=== PATIENT | male | born 1950 | race Hispanic/Latino ===

== ENCOUNTER 2018-01-29 11:25 | Day surgery (SDC) | payer OTHER ==
[2018-01-29] MEDS ORDERED: CYCLOPENTOLATE 1% OPTH 2 ML ONE (12:53)
[2018-01-29] MEDS ORDERED: PHENYLEPHRINE 10% OPTH 5ML ONE (12:53)
[2018-01-29] MEDS ORDERED: NA CHLORIDE 0.9% 500 ML ONE (12:53)
[2018-01-29] MEDS ORDERED: PHENYLEPHRINE 10% OPTH 5ML OPTH ONE ×2 (12:56→13:08)
[2018-01-29] MEDS ORDERED: CYCLOPENTOLATE 1% OPTH 2 ML OPTH ONE ×2 (12:56→13:08)
[2018-01-29] MEDS ORDERED: EPINEPHRINE/PF 1 MG/ML AMP ONE (12:58)
[2018-01-29] MEDS ORDERED: NS 0.9% VIAL 10 ML ONE (12:58)
[2018-01-29] MEDS ORDERED: BALANCED SALT IRRIG PLAIN 500 ML BTL IRR ONE (12:58)
[2018-01-29] MEDS ORDERED: MOXIFLOXACIN HCL 10 DROPS/ML **OR USE OPTH ONE (12:59)
[2018-01-29] MEDS ORDERED: DUOVISC 1 KIT OPTH ONE (12:59)
[2018-01-29] MEDS: TETRACAINE HCL 0.5% 2ML OPTH ONE ×2 (13:58→14:15)
[2018-01-29] MEDS: LIDOCAINE 2% MPF 5 ML VIAL ONE ×2 (13:59→14:16)
[2018-01-29] MEDS: BUPIVACAINE 0.25% PF 10 ML VIAL ONE ×2 (13:59→14:16)
[2018-01-29] MEDS ORDERED: PROPOFOL 200 MG/20 ML VIAL IV ONE (14:49)
[2018-01-29] MEDS ORDERED: LIDOCAINE 2% MPF 5 ML VIAL ONE (14:49)
--- NOTE | 2018-01-29 15:09 | P.BOP ---
Preoperative diagnosis: Nuclear sclerotic cataract OS Postoperative diagnosis: Same Primary procedure: Phacoemulsification with IOL OS Estimated blood loss: None Anesthesia: Local (Subtenon's infusion with anesthesia for cataract surgery) Complications: None Implants: [id number] +22.5 Transferred to: Other (Day surgery) Condition: Good
--- NOTE | 2018-01-30 00:27 | OP ---
Date of Procedure: 01/29/2018 Surgeon: Samaria Swanson MD Anesthesiologist: 1. Barry Hurley CRNA. 2. Holger Medrano M.D. Preoperative Diagnosis: Nuclear sclerotic cataract, OS (left eye). Operation Performed: Phacoemulsification with intraocular lens implant, OS (left eye). Anesthesia: Per cataract surgery. Complications: None. Description Of Procedure: In day surgery, the patient was prepped with Betadine and draped. A conju nctival incision was made in the inferior nasal quadrant with Kunal scissors. A sub-Tenon block c onsisting of a 1:1 mixture of 2% Xylocaine and 0.25% bupivacaine was placed through the conjunctival incision with a blunt cannula. A Honan balloon was placed over the eye and the patient was transferr ed to the operating room. In the operating room the patient was prepped and draped in the usual sterile fashion for ophthalmic surgery. A lid speculum was placed in the OS. Two paracentesis sites were made superiorly and infer iorly in the limbal cornea. Viscoat was placed in the anterior chamber and a crescent blade was used to make a corneal groove and tunnel, and a keratome was used to enter the anterior chamber. Provisc was placed in the anterior chamber and a 360 degree capsulotomy was performed with a cystitome. The lens was hydrodissected with BSS and rotated freely. The lens was removed with a stop and chop tech nique. A 16.37 phaco CDE was used to remove the lens. Residual cortex was removed with the irrigati on and aspiration. Provisc was placed in the capsular bag. A ZCB00 +22.5 diopter lens was placed in the capsular bag without complications. Irrigation and aspiration was used to remove residual visco elastic. The paracentesis sites were hydrated with BSS. The wound and paracentesis sites were inspe cted and found to be watertight. Vigamox 0.07 cc was placed intracamerally at the end of the procedu re. The eye was irrigated with balanced salt solution. The eye was patched with a soft cotton patch and Leon metal shield. The patient was returned to day surgery in good condition. Discharge Instructions: Mr. Boswell is discharged to home in good condition and is to follow up [facility] Dr. Swanson in the morning. JHL/MODL Voice ID: [id number] Report ID: [id number]
== END 2018-01-29 15:36 | disposition home or self-care (01) ==
LOC: OR 11:25
PROVIDERS: ATTEND Ophthalmology Retina Specialist
PROC: 08RK3JZ Replacement of Left Lens with Synthetic Substitute, Percutaneous Approach (ICD-10-PCS; principal; 2018-01-29 11:45)
DX: H25.12 Age-related nuclear cataract, left eye (principal); F17.200 Nicotine dependence, unspecified, uncomplicated; M19.90 Unspecified osteoarthritis, unspecified site; Z83.3 Family history of diabetes mellitus
CPT/HCPCS: J0171

== ENCOUNTER 2018-05-21 06:25 | Day surgery (SDC) | payer OTHER ==
[2018-05-21] MEDS ORDERED: BUPIVACAINE 0.25% PF 10 ML VIAL ONE (06:59)
[2018-05-21] MEDS ORDERED: CYCLOPENTOLATE 1% OPTH 2 ML ONE (06:59)
[2018-05-21] MEDS ORDERED: LIDOCAINE 2% MPF 5 ML VIAL ONE (06:59)
[2018-05-21] MEDS ORDERED: TETRACAINE HCL 0.5% 2ML OPTH ONE (07:00)
[2018-05-21] MEDS ORDERED: NA CHLORIDE 0.9% 500 ML ONE (07:00)
[2018-05-21] MEDS ORDERED: PHENYLEPHRINE 10% OPTH 5ML ONE (07:01)
[2018-05-21] MEDS ORDERED: PHENYLEPHRINE 10% OPTH 5ML OPTH ONE ×2 (07:27→07:37)
[2018-05-21] MEDS ORDERED: CYCLOPENTOLATE 1% OPTH 2 ML OPTH ONE ×2 (07:27→07:37)
[2018-05-21] MEDS ORDERED: FENTANYL CITR 100 MCG/2 ML ONE (07:53)
[2018-05-21] MEDS ORDERED: MIDAZOLAM HCL 2 MG/2 ML INJ ONE (07:54)
[2018-05-21] MEDS ORDERED: LIDOCAINE HCL/PF 3.5% OPTH GEL ONE (07:58)
[2018-05-21] MEDS ORDERED: NS 0.9% VIAL 10 ML ONE (08:02)
[2018-05-21] MEDS ORDERED: EPINEPHRINE/PF 1 MG/ML AMP ONE (08:03)
[2018-05-21] MEDS ORDERED: BALANCED SALT IRRIG PLAIN 500 ML BTL IRR ONE (08:04)
[2018-05-21] MEDS ORDERED: DUOVISC 1 KIT OPTH ONE (08:05)
[2018-05-21] MEDS ORDERED: MOXIFLOXACIN HCL 10 DROPS/ML **OR USE OPTH ONE (08:06)
[2018-05-21] MEDS ORDERED: LIDOCAINE 1% MPF 2 ML AMPULE ONE (08:06)
[2018-05-21] MEDS ORDERED: GLYCOPYRROLATE 0.2 MG/ML SYR ONE (08:36)
--- NOTE | 2018-05-21 09:05 | P.BOP ---
Preoperative diagnosis: Nuclear sclerotic cataract OD Postoperative diagnosis: Same Primary procedure: Phacoemulsification with IOL OD Estimated blood loss: None Anesthesia: Local (Topical with anesthesia for cataract surgery) Complications: None Implants: ZCB00 +22.5 Transferred to: Other (Day surgery) Condition: Good
--- NOTE | 2018-05-21 17:26 | OP ---
Date of Procedure: 05/21/2018 Surgeon: Samaria Swanson MD Anesthesiologist: 1. Elisabeth Liu C.R.N.A. 2. Cameron Meyers M.D. Preoperative Diagnosis: Nuclear sclerotic cataract, right eye. Operation Performed: Phacoemulsification with intraocular lens implant, right eye. Anesthesia: Per cataract surgery Complications: None. Description Of Procedure: In the operating room the patient was prepped and draped in the usual sterile fashion for ophthalmic surgery. A lid speculum was placed in the right eye. Two paracentesis sites were made superiorly and inferiorly in the limbal cornea. Viscoat was placed in the anterior chamber and a crescent blade was used to make a corneal groove and tunnel, and a keratome was used to enter the anterior chamber. Provisc was placed in the anterior chamber and a 360 degree capsulotomy was performed with a cystitome. The lens was hydrodissected with BSS and rotated freely. The lens was removed with a stop and chop technique. 8.97 phaco CDE was used to remove the lens. Residual cortex was removed with the irrigation and aspiration. Provisc was placed in the capsular bag. A ZCB00 +22.5 lens was placed in the capsular bag without complications. Irrigation and aspiration was used to remove residual viscoelastic. The paracentesis sites were hydrated with BSS. The wound and paracentesis sites were inspected and found to be watertight. Vigamox 0.07 cc was placed intracamerally at the end of the procedure. The eye was irrigated with balanced salt solution. The eye was patched with a soft cotton patch and Leon metal shield. The patient was returned to day surgery in good condition. Comments: Akten was placed in the eye in Day Surgery and irrigated out the eye and the OR. Preservative-free 1% lidocaine was placed in the anterior chamber prior to Viscoat. Discharge Instructions: Mr. Boswell is discharged to home in good condition and is to follow up with Dr. Swanson in the morning. JUDI/DORIAN Voice ID: [id number] Report ID: [id number] OVIDIO
== END 2018-05-21 09:32 | disposition home or self-care (01) ==
LOC: OR 06:25
PROVIDERS: ATTEND Ophthalmology Retina Specialist
PROC: 08RJ3JZ Replacement of Right Lens with Synthetic Substitute, Percutaneous Approach (ICD-10-PCS; principal; 2018-05-21 08:30)
DX: H25.11 Age-related nuclear cataract, right eye (principal); F17.210 Nicotine dependence, cigarettes, uncomplicated; Z83.3 Family history of diabetes mellitus
CPT/HCPCS: J0171; J2001; J2250; J3010

== ENCOUNTER 2018-08-22 11:09 | Observation (INO) | payer OTHER ==
[2018-08-22] MEDS ORDERED: CLINDAMYCIN 600MG/D5W 600 MG/50 ML BAG IV ONE (13:20)
--- NOTE | 2018-08-22 13:26 | RAD REPORT ---
EXAM DESCRIPTION: RAD - Hand Left 3 View - 08/22/2018 1:03 pm CLINICAL HISTORY: r/o FB;Swelling Pain COMPARISON: No comparisons FINDINGS: There is a large amount of soft tissue swelling along the dorsum of the hand. A radiopaque foreign body is not seen. Radiocarpal arthritic changes are present. No acute fracture or subluxatio n. No aggressive marrow pattern. IMPRESSION: Prominent soft tissue swelling.
[2018-08-22 13:30] LABS: Absolute Lymphocytes (CBC) 1.3 K/uL (0.7-4.9); Absolute Monocytes 1.2 K/uL (0.1-1.3); Absolute Neutrophil 10.6 K/uL (1.8-8.0); Basophils % 0.2 % (0-1.3); Eosinophils % 1.9 % (0-4.4); Hematocrit 47.6 % (39.6-49.0); Lymphocytes % 9.6 % (15.3-44.8); MCH 34.2 pg (27.0-35.0); MCV 98.5 fL (80-100); MPV 8.7 fL (7.6-11.3); Monocytes % 9.1 % (3.3-12.3); RBC Red Blood Cell Count 4.83 M/uL (4.33-5.43)
[2018-08-22 13:47] LABS: Potassium 3.6 mmol/L (3.5-5.1)
[2018-08-22] MEDS ORDERED: HYDROCODONE/APAP 10/325 TAB ONE (14:01)
[2018-08-22] MEDS ORDERED: TETANUS & DIPHTHERIA TOX,ADULT 0.5 ML VIAL ONE (14:05)
--- NOTE | 2018-08-22 15:05 | ER ---
Nurse's Notes [facility] Name: Merle Boswell Age: 68 yrs Sex: Male : 1950 Arrival Date: 08/22/2018 Time: 11:11 Bed 24 Private MD: Diagnosis: Cellulitis of left upper limb-hand Presentation: 08/22 11:25 Presenting complaint: Patient states: On Monday he noticed a blister on his left hand aj1 so he popped it, he noticed redness and swelling starting on Monday. He was seen at the clinic yesterday morning and they started him on cephalexin PO and mupirocin ointment and alejandro a washoe around the reddened area, but this morning the redness has spread despite him taking the antibiotics. They followed up at the clinic and were to told to come to the emergency room for further evaluation. Denies fever. Transition of care: patient was not received from another setting of care. Onset of symptoms was July 2018. Risk Assessment: Do you want to hurt yourself or someone else? Patient reports no desire to harm self or others. Initial Sepsis Screen: Does the patient meet any 2 criteria? No. Patient's initial sepsis screen is negative. Does the patient have a suspected source of infection? Yes: Skin breakdown/wound. Care prior to arrival: None. 11:25 Method Of Arrival: Ambulatory aj1 11:25 Acuity: LUIS 3 aj1 Triage Assessment: 11:30 General: Appears in no apparent distress. comfortable, Behavior is calm, cooperative, aj1 appropriate for age. Pain: Complains of pain in left hand Pain currently is 9 out of 10 on a pain scale. Neuro: Level of Consciousness is awake, alert, obeys commands. Cardiovascular: Patient's skin is warm and dry. Respiratory: Airway is patent Respiratory effort is even, unlabored, Respiratory pattern is regular, symmetrical. Historical: - Allergies: 11:30 No Known Allergies; aj1 - Home Meds: 11:30 Cephalexin Oral [Active]; mupirocin topical topical [Active]; aj1 - PMHx: 11:30 None; aj1 - Immunization history:: Adult Immunizations. - Social history:: Smoking status: . - Ebola Screening: : Patient denies travel to an Ebola-affected area in the 21 days before illness onset. Screenin:43 Abuse screen: Denies threats or abuse. Nutritional screening: No deficits noted. tw2 Tuberculosis screening: No symptoms or risk factors identified. Fall Risk None identified. Assessment: 12:30 General: Appears in no apparent distress. Behavior is calm, cooperative, appropriate tw2 for age. Pain: Complains of pain in left hand. Neuro: Level of Consciousness is awake, alert, obeys commands, Oriented to person, place, time, situation. Cardiovascular: Denies chest pain, shortness of breath, Heart tones S1 S2 Capillary refill < 3 seconds. Respiratory: Airway is patent Respiratory effort is even, unlabored, Respiratory pattern is regular, symmetrical, Breath sounds are clear bilaterally. GI: No signs and/or symptoms were reported involving the gastrointestinal system. : No signs and/or symptoms were reported regarding the genitourinary system. EENT: No signs and/or symptoms were reported regarding the EENT system. Derm: Wound noted left hand. Musculoskeletal: Range of motion: intact in all extremities. 13:30 Reassessment: Patient appears in no apparent distress at this time. No changes from tw2 previously documented assessment. Patient and/or family updated on plan of care and expected duration. Pain level reassessed. Patient is alert, oriented x 3, equal unlabored respirations, skin warm/dry/pink. 14:09 Reassessment: Patient appears in no apparent distress at this time. No changes from tw2 previously documented assessment. Patient and/or family updated on plan of care and expected duration. Pain level reassessed. Patient is alert, oriented x 3, equal unlabored respirations, skin warm/dry/pink. Reassessment: pts DAUGHTER ph# [phone]. 15:12 Reassessment: Patient appears in no apparent distress at this time. No changes from tw2 previously documented assessment. Patient and/or family updated on plan of care and expected duration. Pain level reassessed. Patient is alert, oriented x 3, equal unlabored respirations, skin warm/dry/pink. Patient states feeling better. 16:15 Reassessment: Patient appears in no apparent distress at this time. No changes from tw2 previously documented assessment. Patient and/or family updated on plan of care and expected duration. Pain level reassessed. Patient is alert, oriented x 3, equal unlabored respirations, skin warm/dry/pink. Vital Signs: 11:30 BP 135 / 68; Pulse 82; Resp 16; Temp 97.7; Pulse Ox 98% on R/A; Weight 77.11 kg (R); aj1 Height 5 ft. 4 in. (162.56 cm) (R); Pain 9/10; 14:09 BP 144 / 70; Pulse 76; Resp 17; Pulse Ox 96% on R/A; tw2 15:11 BP 118 / 64; Pulse 69; Resp 17; Pulse Ox 95% on R/A; tw2 16:11 BP 121 / 66; Pulse 66; Resp 17; Pulse Ox 96% on R/A; tw2 11:30 Body Mass Index 29.18 (77.11 kg, 162.56 cm) aj1 ED Course: 11:11 Patient arrived in ED. as 11:29 Triage completed. aj1 11:30 Arm band placed on Patient placed in waiting room, Patient notified of wait time. aj1 12:27 Joana Andrade FNP-C [facility] kb 12:27 Los Apodaca MD is Attending Physician. kb 12:30 Bed in low position. Call light in reach. Adult w/ patient. Pulse ox on. NIBP on. Warm tw2 blanket given. 12:54 Candace Monreal, HOLLY is Primary Nurse. tw2 12:54 Missed attempt(s): 22 gauge in right antecubital area. Bleeding controlled, band aid tw2 applied, catheter tip intact. 13:02 Missed attempt(s): 22 gauge in right forearm. notified HOLLY Robbins of need for IV. tw2 Bleeding controlled, band aid applied, catheter tip intact. 13:03 Hand Left 3 View XRAY In Process Unspecified. EDMS 13:05 Inserted saline lock: 22 gauge in right forearm, using aseptic technique. ,using tw2 aseptic technique. per HOLLY Robbins Blood collected. 15:05 Suki Durán MD is Hospitalizing Provider. kb 16:43 No provider procedures requiring assistance completed. Patient admitted, IV remains in tw2 place. Administered Medications: 13:24 Drug: Clindamycin 600 mg Route: IVPB; Infused Over: 30 mins; Site: right forearm; tw2 13:55 Follow up: Response: No adverse reaction; IV Status: Completed infusion tw2 14:03 Drug: [place] 10 mg-325 mg 1 tabs Route: PO; tw2 15:13 Follow up: Response: No adverse reaction; Pain is decreased tw2 14:03 Not Given (Patient Refused; got tetaus at clinic yesterday): Tetanus-Diphtheria Toxoid tw2 Adult 0.5 ml IM once Outcome: 15:05 Decision to Hospitalize by Provider. kb 16:45 Admitted to Med/surg accompanied by tech, via wheelchair, room 211, with chart, Report tw2 called to HOLLY Rich 16:45 Condition: stable 16:45 Instructed on the need for admit. 17:20 Patient left the ED. tw2 Signatures: Dispatcher [employer] EDMS Joana Andrade, PLATFORM BUILDER-C PLATFORM BUILDER-Radha Arnold RN RN aj1 Jo Ann Bailey as Candace Monreal, HOLLY RN tw2 Corrections: (The following items were deleted from the chart) 16:54 16:45 Admitted to Med/surg accompanied by tech, via wheelchair, room 211, with chart, tw2 Report called to HOLLY Wolf tw2
--- NOTE | 2018-08-22 15:06 | EDPHYS ---
Physician Documentation [facility] Name: Merle Boswell Age: 68 yrs Sex: Male : 1950 Arrival Date: 08/22/2018 Time: 11:11 Bed 24 Private MD: ED Physician Los Apodaca HPI: 08/22 15:12 This 68 yrs old Male presents to ER via Ambulatory with complaints of Hand kb Swelling. 15:12 The patient or guardian reports pain, swelling. Context: The problem was sustained. kb 15:14 The patient presents with cellulitis of the left hand. Description: erythematous, kb swollen, warm. Onset: The symptoms/episode began/occurred 6 day(s) ago. Possible cause(s): unknown. Associated signs and symptoms: Pertinent positives: drainage, erythema, swelling, Pertinent negatives: foreign body sensation, fever, headache, nausea, shortness of breath, vomiting. Modifying factors: the symptoms are alleviated by nothing, the symptoms are aggravated by nothing. Severity of symptoms: At their worst the symptoms were moderate, in the emergency department the symptoms are unchanged. The patient has not experienced similar symptoms in the past. The patient has been recently seen by a physician: a family practitioner, yesterday, with similar presenting complaints, was given a prescription for antibiotics. 15:15 Pt noticed a blister to knuckle of left middle finger on Monday, started getting red kb and swollen so he went to the clinic to get it checked. Was placed on keflex yesterday and alejandro a line around area of redness/swelling. States redness and swelling has gone to entire hand since then. Historical: - Allergies: 11:30 No Known Allergies; aj1 - Home Meds: 11:30 Cephalexin Oral [Active]; mupirocin topical topical [Active]; aj1 - PMHx: 11:30 None; aj1 - Immunization history:: Adult Immunizations. - Social history:: Smoking status: . - Ebola Screening: : Patient denies travel to an Ebola-affected area in the 21 days before illness onset. ROS: 15:12 Constitutional: Negative for fever, chills, and weight loss, ENT: Negative for injury, kb pain, and discharge, Neck: Negative for injury, pain, and swelling, Cardiovascular: Negative for chest pain, palpitations, and edema, Respiratory: Negative for shortness of breath, cough, wheezing, and pleuritic chest pain, Abdomen/GI: Negative for abdominal pain, nausea, vomiting, diarrhea, and constipation, Back: Negative for injury and pain, MS/Extremity: Negative for injury and deformity, Neuro: Negative for headache, weakness, numbness, tingling, and seizure. 15:12 Skin: Positive for cellulitis, erythema, swelling. Exam: 15:12 Constitutional: This is a well developed, well nourished patient who is awake, alert, kb and in no acute distress. Head/Face: Normocephalic, atraumatic. Chest/axilla: Normal chest wall appearance and motion. Nontender with no deformity. No lesions are appreciated. Cardiovascular: Regular rate and rhythm with a normal S1 and S2. No gallops, murmurs, or rubs. Normal PMI, no JVD. No pulse deficits. Respiratory: Lungs have equal breath sounds bilaterally, clear to auscultation and percussion. No rales, rhonchi or wheezes noted. No increased work of breathing, no retractions or nasal flaring. Abdomen/GI: Soft, non-tender, with normal bowel sounds. No distension or tympany. No guarding or rebound. No evidence of tenderness throughout. MS/ Extremity: Pulses equal, no cyanosis. Neurovascular intact. Full, normal range of motion. Neuro: Awake and alert, GCS 15, oriented to person, place, time, and situation. Cranial nerves II-XII grossly intact. Motor strength 5/5 in all extremities. Sensory grossly intact. Cerebellar exam normal. Normal gait. 15:12 Skin: cellulitis, that is moderate, on the left hand. Vital Signs: 11:30 BP 135 / 68; Pulse 82; Resp 16; Temp 97.7; Pulse Ox 98% on R/A; Weight 77.11 kg (R); aj1 Height 5 ft. 4 in. (162.56 cm) (R); Pain 9/10; 14:09 BP 144 / 70; Pulse 76; Resp 17; Pulse Ox 96% on R/A; tw2 15:11 BP 118 / 64; Pulse 69; Resp 17; Pulse Ox 95% on R/A; tw2 16:11 BP 121 / 66; Pulse 66; Resp 17; Pulse Ox 96% on R/A; tw2 11:30 Body Mass Index 29.18 (77.11 kg, 162.56 cm) aj1 MDM: 12:28 Patient medically screened. kb 15:02 Data reviewed: vital signs, nurses notes. Data interpreted: Pulse oximetry: on room air kb is 96 %. Interpretation: normal. Counseling: I had a detailed discussion with the patient and/or guardian regarding: the historical points, exam findings, and any diagnostic results supporting the discharge/admit diagnosis, lab results, radiology results, the need for further work-up and treatment in the hospital. Physician consultation: Suki Durán MD was contacted at 15:02, regarding admission, to the medical/surgical unit. patient's condition, and will see patient in ED, shortly. 08/22 12:36 Order name: Wound Culture kb 08/22 12:36 Order name: CBC with Diff; Complete Time: 13:33 kb 08/22 12:36 Order name: Basic Metabolic Panel; Complete Time: 13:52 kb 08/22 12:36 Order name: Blood Culture Adult (2) kb 08/22 12:36 Order name: Hand Left 3 View XRAY; Complete Time: 13:33 kb 08/22 12:36 Order name: IV Start; Complete Time: 13:12 kb 08/22 15:41 Order name: Diet Regular; Complete Time: 15:42 tw2 Administered Medications: 13:24 Drug: Clindamycin 600 mg Route: IVPB; Infused Over: 30 mins; Site: right forearm; tw2 13:55 Follow up: Response: No adverse reaction; IV Status: Completed infusion tw2 14:03 Drug: [place] 10 mg-325 mg 1 tabs Route: PO; tw2 15:13 Follow up: Response: No adverse reaction; Pain is decreased tw2 14:03 Not Given (Patient Refused; got tetaus at clinic yesterday): Tetanus-Diphtheria Toxoid tw2 Adult 0.5 ml IM once Disposition: 08/22/18 15:05 Hospitalization ordered by Suki Durán for Inpatient Admission. Preliminary diagnosis is Cellulitis of left upper limb - hand. - Bed requested for Telemetry/MedSurg (Inpatient). - Status is Inpatient Admission. tw2 - Condition is Stable. - Problem is new. - Symptoms are unchanged. UTI on Admission? No Signatures: Dispatcher [employer] EDJoana Uribe FNP-C FNP-Ckb Ashlie LianetRadha Guzman, RN RN aj1 Candace Monreal RN RN tw2 Corrections: (The following items were deleted from the chart) 16:33 15:05 Hospitalization Ordered by Suki Durán MD for Inpatient Admission. Preliminary bd diagnosis is Cellulitis of left upper limb - hand. Bed requested for Telemetry/MedSurg (Inpatient). Status is Inpatient Admission. Condition is Stable. Problem is new. Symptoms are unchanged. UTI on Admission? No. kb 17:20 16:33 08/22/2018 15:05 Hospitalization Ordered by Suki Durán MD for Inpatient tw2 Admission. Preliminary diagnosis is Cellulitis of left upper limb - hand. Bed requested for Telemetry/MedSurg (Inpatient). Status is Inpatient Admission. Condition is Stable. Problem is new. Symptoms are unchanged. UTI on Admission? No. bd
--- NOTE | 2018-08-22 17:48 | P.HP ---
Certification for Inpatient With expected LOS: <2 Midnights Practitioner: I am a practitioner with admitting privileges, knowledge of patient current condition, hospital course, and medical plan of care. Services: Services provided to patient in accordance with Admission requirements found in Title 42 Section 412.3 of the Code of Federal Regulations Patient History Date of Service: 08/22/18 History of Present Illness: Mr. Boswell is a 60-year-old gentleman with no known past medical history presents with complaints of left hand pain. He noted a small cut on his left hand on Monday, which is progressively gotten worse. He did go to his primary care physician yesterday, got oral antibiotics and PCP alejandro a [place] around the cellulitic area. The erythema and swelling had progressively gotten worse since yesterday, therefore patient came in for further evaluation. He denies any fevers, chills, chest pain, shortness of breath, or headaches. Of note, patient has no PCP and has not visited a doctor in a long time therefore on sure of any chronic diseases. He states that he does not take any medications at home. At the time of my examination, patient was alert oriented x3 and stated that the pain had improved. Allergies No Known Allergies Allergy (Verified 05/16/18 10:36) Home Medications: NK [No Home Meds] 01/25/18 - Past Medical/Surgical History Past Medical History: Patient denies medical history Past Surgical History: Patient denies surgical history - Social History Smoking Status: Current every day smoker Alcohol use: Yes CD- Drugs: No Caffeine use: Yes Place of Residence: Home Review of Systems General: Unremarkable Eyes: Unremarkable ENT: Unremarkable Respiratory: Unremarkable Cardiovascular: Unremarkable Gastrointestinal: Unremarkable Genitourinary: Unremarkable Musculoskeletal: As per HPI Physical Examination - Vital Signs Temperature: 97.7 F Blood Pressure: 121/66 Pulse: 66 Respirations: 17 - Physical Exam General: Alert, In no apparent distress, Oriented x3 HEENT: Atraumatic, PERRLA, Mucous membr. moist/pink, EOMI, Sclerae nonicteric Neck: Supple, 2+ carotid pulse no bruit, No LAD, Without JVD or thyroid abnormality Respiratory: Clear to auscultation bilaterally, Normal air movement Cardiovascular: Regular rate/rhythm, Normal S1 S2 Gastrointestinal: Normal bowel sounds, No tenderness Musculoskeletal: Swelling (Located on left hand), Erythema, Tenderness, Warmth Integumentary: No rashes Neurological: Normal gait, Normal speech, Normal strength at 5/5 x4 extr, Normal tone, Normal affect Lymphatics: No axilla or inguinal lymphadenopathy - Studies Laboratory Data (last 24 hrs) 08/22/18 13:05: Sodium 139, Potassium 3.6, BUN 13, Creatinine 0.90, Glucose 101 08/22/18 13:05: WBC 13.4 H, Hgb 16.5, Hct 47.6, Plt Count 221 Assessment and Plan - Problems (Diagnosis) (1) Cellulitis of left hand Current Visit: Yes Status: Acute Plan: Patient admitted for cellulitis of the left handed, failed outpatient treatment Hand x-ray with soft tissue swelling, no bony involvement or acute abnormalities of the bones noted. Will start patient on IV clindamycin Check labs in the morning (2) Tobacco dependence due to cigarettes Current Visit: Yes Status: Acute Plan: Educated and counseled patient on tobacco/smoking cessation Discharge Plan: Home Plan to discharge in: 24 Hours - Advance Directives Does patient have a Living Will: No Does patient have a Durable POA for Healthcare: No
[2018-08-22] MEDS ORDERED: ONDANSETRON 4 MG/2 ML VIAL IV PRN (20:06)
[2018-08-22] MEDS ORDERED: ACETAMINOPHEN 500 MG TAB PO PRN (20:06)
[2018-08-22] MEDS: CLINDAMYCIN INJ 300 MG in NA CHLORIDE 0.9% 50 ML IV SCH (21:11)
[2018-08-22] MEDS ORDERED: CLINDAMYCIN IV 150 MG/ML (6 mL) VIAL ONE (21:12)
[2018-08-22] MEDS ORDERED: NA CHLORIDE 0.9% 50 ML ONE (21:13)
[2018-08-22] MEDS ORDERED: NA CHLORIDE 0.9% 250 ML ONE (21:13)
[2018-08-22] MEDS: TRAMADOL HCL 50 MG TAB PO PRN (21:22)
[2018-08-22] MEDS ORDERED: ENOXAPARIN 30 MG/0.3 ML SQ SCH (21:30)
[2018-08-23] MEDS: CLINDAMYCIN INJ 300 MG in NA CHLORIDE 0.9% 50 ML IV SCH ×4 (01:10→17:28)
[2018-08-23] MEDS ORDERED: NA CHLORIDE 0.9% 100 ML ONE ×2 (01:10→05:29)
[2018-08-23 05:23] LABS: Absolute Lymphocytes (CBC) 1.6 K/uL (0.7-4.9); Absolute Monocytes 0.8 K/uL (0.1-1.3); Absolute Neutrophil 7.5 K/uL (1.8-8.0); Basophils % 0.3 % (0-1.3); Eosinophils % 2.5 % (0-4.4); Hematocrit 46.8 % (39.6-49.0); Lymphocytes % 15.8 % (15.3-44.8); MCH 33.3 pg (27.0-35.0); MCV 99.7 fL (80-100); MPV 8.8 fL (7.6-11.3); Monocytes % 8.2 % (3.3-12.3); RBC Red Blood Cell Count 4.69 M/uL (4.33-5.43)
[2018-08-23] MEDS: TRAMADOL HCL 50 MG TAB PO PRN ×2 (05:27→12:00)
[2018-08-23 05:39] LABS: Albumin 3.6 g/dL (3.4-5.0); Bilirubin Total 0.7 mg/dL (0.2-1.0); Potassium 3.9 mmol/L (3.5-5.1); Protein, Total 7.1 g/dL (6.4-8.2)
[2018-08-23] MEDS ORDERED: POTASSIUM CL SA 10 MEQ TAB PO ONE (12:00)
--- NOTE | 2018-08-23 15:54 | P.PN ---
Subjective Date of Service: 08/23/18 Patient seen and examined at bedside. No family at bedside. Case discussed with nursing staff. Patient reports slightly improved swelling and erythema. Still noticing pus and drainage from wound. Afebrile overnight. No new complaints or concerns this morning. Denies any chills, chest pain, nausea, vomiting, headache or visual changes. Review of Systems 10-point ROS is otherwise unremarkable Physical Examination - Vital Signs Temperature: 98.6 F Blood Pressure: 133/65 Pulse: 65 Respirations: 17 Pulse Ox (%): 93 - Physical Exam General: Alert, In no apparent distress HEENT: Atraumatic, PERRLA, EOMI Neck: Supple, JVD not distended Respiratory: Clear to auscultation bilaterally, Normal air movement Cardiovascular: Regular rate/rhythm, Normal S1 S2 Gastrointestinal: Normal bowel sounds, No tenderness Musculoskeletal: Swelling, Erythema, Tenderness, Other (Located on the left hand at the base of the 2nd finger. No induration felt. ) Integumentary: No rashes Neurological: Normal speech, Normal tone, Normal affect Lymphatics: No axilla or inguinal lymphadenopathy - Studies Microbiology Data (last 24 hrs): 08/22/18 12:30 Wound - Left Finger Gram Stain - Final Medications List Reviewed: Yes Assessment And Plan - Current Problems (Diagnosis) (1) Cellulitis of left hand Onset Date: 08/23/18 Current Visit: Yes Status: Acute Plan: Patient admitted for cellulitis of the left hand, failed outpatient treatment Hand x-ray with soft tissue swelling, no bony involvement or acute abnormalities of the bones noted. Will continue patient on IV clindamycin Check labs in the morning (2) Tobacco dependence due to cigarettes Onset Date: 08/23/18 Current Visit: Yes Status: Acute Plan: Educated and counseled patient on tobacco/smoking cessation - Plan If improved symptomatically tomorrow on IV clindamycin, will discharge patient home
[2018-08-23] MEDS ORDERED: ENOXAPARIN 30 MG/0.3 ML SQ SCH (21:00)
[2018-08-24] MEDS: CLINDAMYCIN INJ 300 MG in NA CHLORIDE 0.9% 50 ML IV SCH ×3 (01:29→13:18)
[2018-08-24] MEDS: TRAMADOL HCL 50 MG TAB PO PRN ×2 (01:33→13:15)
[2018-08-24 05:39] LABS: Absolute Lymphocytes (CBC) 1.5 K/uL (0.7-4.9); Absolute Monocytes 0.9 K/uL (0.1-1.3); Absolute Neutrophil 6.1 K/uL (1.8-8.0); Basophils % 0.4 % (0-1.3); Eosinophils % 4.1 % (0-4.4); Hematocrit 46.2 % (39.6-49.0); Lymphocytes % 16.9 % (15.3-44.8); MCH 33.4 pg (27.0-35.0); MCV 98.6 fL (80-100); MPV 8.7 fL (7.6-11.3); RBC Red Blood Cell Count 4.68 M/uL (4.33-5.43)
[2018-08-24 05:53] LABS: Albumin 3.3 g/dL (3.4-5.0); Bilirubin Total 0.7 mg/dL (0.2-1.0); Magnesium 2.2 mg/dL (1.8-2.4)
== END 2018-08-24 13:43 | disposition home or self-care (01) ==
LOC: ER 11:09 → INTOOBSV 15:11 → ERHOLD 15:11 → 2ND 16:58
PROVIDERS: ADMIT Family Medicine; ATTEND Family Medicine
DX: L03.114 Cellulitis of left upper limb (principal); F17.210 Nicotine dependence, cigarettes, uncomplicated
CPT/HCPCS: 36415; 80048; 80053; 83036; 83735; 85025; 87040; 87070; 87077; 87186; 87205; 90714; 96365; 99285; G0378; J1650

== ENCOUNTER 2020-06-03 08:08 | Emergency (ER) | payer OTHER ==
[2020-06-03 08:54] LABS: Absolute Lymphocytes (CBC) 1.6 K/uL (0.7-4.9); Basophils % 0.7 % (0-1.3); Lymphocytes % 11.2 % (15.3-44.8); MPV 9.1 fL (7.6-11.3)
[2020-06-03] MEDS ORDERED: MORPHINE 4 MG/ML SYR ONE (09:01)
[2020-06-03] MEDS ORDERED: ONDANSETRON 4 MG/2 ML VIAL ONE (09:02)
[2020-06-03 09:13] LABS: Bilirubin Direct 0.2 mg/dL (0-0.2); Potassium 3.8 mmol/L (3.5-5.1); Protein, Total 8.4 g/dL (6.4-8.2)
[2020-06-03] MEDS ORDERED: NA CHLORIDE 0.9% 1,000 ML ONE (09:45)
--- NOTE | 2020-06-03 10:28 | RAD REPORT ---
EXAM DESCRIPTION: CT - Abdomen Pelvis W Contrast - 06/03/2020 9:47 am CLINICAL HISTORY: Abdominal pain COMPARISON: 2012 TECHNIQUE: Computed axial tomography of the abdomen pelvis was obtained. 100 cc Isovue-300 was admin istered intravenously. Oral contrast was not requested which limits evaluation of bowel. All CT scans are performed using dose optimization technique as appropriate and may include automated exposure control or mA/KV adjustment according to patient size. FINDINGS: Old rib fractures 11 millimeter nodule right lower lobe within eccentric calcification The liver, spleen, pancreas, adrenal and and left kidney appear unremarkable. A 8 millimeter calculus lower pole right kidney. Minimal right hydronephrosis. The calculus is not ob structing the pelvis. No evidence of diverticulitis. Normal appendix. Small inguinal hernias contain fat IMPRESSION: 8 millimeter nonobstructing right renal calculus Minimal right hydronephrosis. Right ureter normal caliber 11 millimeter right lower lobe nodule with an eccentric calcification. It is recommended that the pat ient have a followup CT chest in 3 months to assess stability
--- NOTE | 2020-06-03 11:37 | ER ---
Nurse's Notes [facility] Name: Merle Boswell Age: 69 yrs Sex: Male : 1950 Arrival Date: 06/03/2020 Time: 08:15 Bed 16 Private MD: Diagnosis: Left Flank Pain Presentation: 06/03 08:16 Chief complaint: EMS states: Pt presents via EMS with c/o left side abd pain that jr10 radiates to left side back that started this morning with n/v. Coronavirus screen: Client denies travel out of the [place] in the last 14 days. At this time, the client does not indicate any symptoms associated with coronavirus-19. Ebola Screen: No symptoms or risks identified at this time. Initial Sepsis Screen: Does the patient meet any 2 criteria? No. Patient's initial sepsis screen is negative. Does the patient have a suspected source of infection? No. Patient's initial sepsis screen is negative. Risk Assessment: Do you want to hurt yourself or someone else? Patient reports no desire to harm self or others. Onset of symptoms was June 03, 2020. 08:16 Method Of Arrival: EMS jr10 08:16 Acuity: LUIS 2 jr10 Historical: - Allergies: 08:36 No Known Allergies; jr10 - Immunization history:: Adult Immunizations up to date. - Social history:: Smoking status: unknown. Screenin:20 Abuse screen: Denies threats or abuse. Denies injuries from another. Nutritional jr10 screening: No deficits noted. Tuberculosis screening: No symptoms or risk factors identified. Fall Risk IV access (20 points). Assessment: 08:18 General: Appears distressed, uncomfortable, Behavior is calm, cooperative, appropriate jr10 for age. Pain: Complains of pain in left upper quadrant and left lower quadrant Pain radiates to left low back and left mid back Pain currently is 9 out of 10 on a pain scale. Quality of pain is described as sharp, Pain began this morning Is episodic, lasting a few minutes. Neuro: No deficits noted. Cardiovascular: No deficits noted. Respiratory: No deficits noted. GI: Abdomen is non-distended, Bowel sounds present X 4 quads. Abdomen is tender to palpation in left upper quadrant and left lower quadrant Reports nausea, vomiting. : No deficits noted. Reports pain in left flank(s), Denies burning with urination, inability to void, urinary frequency, urgency. Derm: No deficits noted. Musculoskeletal: No deficits noted. 09:40 Reassessment: Patient is alert, oriented x 3, equal unlabored respirations, skin jr10 warm/dry/pink. Patient denies pain at this time. Patient states feeling better. Patient states symptoms have improved. pt instructed to call nurse if pain returns. . 10:02 Reassessment: PT FAMILY CONTACT INFORMATION: CARLY (DAUGHTER): [phone]. jr10 Vital Signs: 08:16 BP 156 / 77; Pulse 60; Resp 20; Temp 97.9(O); Pulse Ox 99% ; Pain 9/10; jr10 09:43 BP 121 / 60; Pulse 51; Resp 20; Pulse Ox 96% on R/A; jr10 10:51 BP 122 / 63; Pulse 52; Resp 20; Pulse Ox 99% on R/A; jr10 12:14 BP 119 / 71; Pulse 53; Resp 20; Pulse Ox 99% on R/A; Pain 0/10; jr10 ED Course: 08:15 Patient arrived in ED. jr10 08:18 Guillermo Kruse PA is PHCP. jmm 08:18 Los Apodaca MD is Attending Physician. jmm 08:18 Triage completed. jr10 08:18 Arm band placed on. jr10 08:20 No provider procedures requiring assistance completed. Inserted saline lock: 20 gauge jr10 in left forearm, using aseptic technique. IV is patent, is intact, Flushed. 08:21 Nallely Toney, HOLLY is Primary Nurse. jr10 08:21 Patient has correct armband on for positive identification. Bed in low position. Call jr10 light in reach. Side rails up X 1. Pulse ox on. NIBP on. 09:47 CT Abd/Pelvis - IV Contrast Only In Process Unspecified. EDMS 11:37 Shaheed Snowden MD is Referral Physician. jmm 12:14 IV discontinued, bleeding controlled, No redness/swelling at site. Pressure dressing jr10 applied. Administered Medications: 08:55 Drug: Zofran (Ondansetron) 4 mg Route: IVP; Site: left forearm; jr10 10:50 Follow up: Response: No adverse reaction; Nausea is decreased jr10 09:39 Drug: NS 0.9% 1000 ml Route: IV; Rate: 1 bolus; Site: left forearm; jr10 10:56 Follow up: Response: No adverse reaction; IV Status: Completed infusion jr10 10:50 Not Given (pt denies pain, parameters not met): morphine 4 mg IVP once; RASS on ADMIN: jr10 Combtv4, Very Agttd3, Agttd2, Rstlss1, AlertClm0, Drwsy-1, Lt Sdtn-2, Mod Sdtn-3, Dp Sdtn-4, UnArsble-5 Outcome: 11:37 Discharge ordered by . hi 12:15 Discharged to home ambulatory. jr10 12:15 Condition: improved 12:15 Discharge instructions given to patient, Instructed on discharge instructions, follow up and referral plans. Demonstrated understanding of instructions, follow-up care. 12:15 Patient left the ED. jr10 Signatures: Dispatcher [employer] EDMS Guillermo Kruse PA PA jmm Rivera, Jessica, RN RN jr10
--- NOTE | 2020-06-03 11:38 | EDPHYS ---
Physician Documentation [facility] Name: Merle Boswell Age: 69 yrs Sex: Male : 1950 Arrival Date: 06/03/2020 Time: 08:15 Bed 16 Private MD: ED Physician Los Apodaca HPI: 06/03 08:19 This 69 yrs old Male presents to ER via EMS with complaints of Abdominal Pain. [facility] 08:19 The patient presents with abdominal pain in the left lower quadrant. Onset: The jmm symptoms/episode began/occurred acutely, this morning. The symptoms do not radiate. Associated signs and symptoms: Pertinent positives: nausea, Pertinent negatives: shortness of breath, testicular pain, vomiting, vomiting blood. Modifying factors: The symptoms are alleviated by nothing, the symptoms are aggravated by nothing. This is a 69 year old male that presents to the ED with complaints of acute onset left sided abdominal pain. Denies vomiting or diarrhea. Denies scrotal pain. Denies similar episode. Denies previous abdominal surgeries. . Historical: - Allergies: 08:36 No Known Allergies; jr10 - Immunization history:: Adult Immunizations up to date. - Social history:: Smoking status: unknown. ROS: 08:19 Constitutional: Negative for fever, chills, and weight loss, Cardiovascular: Negative jm for chest pain, palpitations, and edema, Respiratory: Negative for shortness of breath, cough, wheezing, and pleuritic chest pain. 08:19 Abdomen/GI: Positive for abdominal pain. 08:19 All other systems are negative. Exam: 08:19 Constitutional: This is a well developed, well nourished patient who is awake, alert, jmm and in no acute distress. Head/Face: atraumatic. Eyes: EOMI, no conjunctival erythema appreciated ENT: Moist Mucus Membranes Neck: Trachea midline, Supple Chest/axilla: Normal chest wall appearance and motion. Cardiovascular: Regular rate and rhythm. No edema appreciated Respiratory: Normal respirations, no respiratory distress appreciated Abdomen/GI: Non distended, soft Back: Normal ROM Skin: General appearance color normal MS/ Extremity: Moves all extremities, no obvious deformities appreciated, no edema noted to the lower extremities Neuro: Awake and alert, normal gait 08:19 Psych: Behavior is normal, Mood is normal, Patient is cooperative and pleasant 08:19 Abdomen/GI: Palpation: moderate abdominal tenderness, in the left lower quadrant. Vital Signs: 08:16 BP 156 / 77; Pulse 60; Resp 20; Temp 97.9(O); Pulse Ox 99% ; Pain 9/10; jr10 09:43 BP 121 / 60; Pulse 51; Resp 20; Pulse Ox 96% on R/A; jr10 10:51 BP 122 / 63; Pulse 52; Resp 20; Pulse Ox 99% on R/A; jr10 12:14 BP 119 / 71; Pulse 53; Resp 20; Pulse Ox 99% on R/A; Pain 0/10; jr10 MDM: 08:19 Patient medically screened. [facility] 11:30 Data reviewed: vital signs, nurses notes. Counseling: I had a detailed discussion with hi the patient and/or guardian regarding: the historical points, exam findings, and any diagnostic results supporting the discharge/admit diagnosis, lab results, radiology results, the need for outpatient follow up, to return to the emergency department if symptoms worsen or persist or if there are any questions or concerns that arise at home. ED course: Pain is relieved in the ED. 3 plus blood. Most likely due to passed stone. Patient is advised to follow up with urology for further evaluation. Patient is advised to return to the ED if symptoms worsen. Patient understood and agrees with the plan of care. . 06/03 08:19 Order name: Basic Metabolic Panel; Complete Time: 09:14 [facility] 06/03 08:19 Order name: CBC with Diff; Complete Time: 08:59 [facility] 06/03 08:19 Order name: Hepatic Function; Complete Time: 09:14 [facility] 06/03 08:19 Order name: Lipase; Complete Time: 09:14 [facility] 06/03 09:22 Order name: CREATININE WHOLE BLOOD; Complete Time: 09:23 [facility] 06/03 11:14 Order name: Urine Dipstick--Ancillary (enter results) bd 06/03 08:19 Order name: IV Saline Lock; Complete Time: 08:21 [facility] 06/03 08:19 Order name: Labs collected and sent; Complete Time: 08:32 [facility] 06/03 08:19 Order name: CT Abd/Pelvis - IV Contrast Only; Complete Time: 10:31 [facility] 06/03 08:20 Order name: Urine Dipstick-Ancillary (obtain specimen); Complete Time: 11:18 [facility] Administered Medications: 08:55 Drug: Zofran (Ondansetron) 4 mg Route: IVP; Site: left forearm; jr10 10:50 Follow up: Response: No adverse reaction; Nausea is decreased jr10 09:39 Drug: NS 0.9% 1000 ml Route: IV; Rate: 1 bolus; Site: left forearm; jr10 10:56 Follow up: Response: No adverse reaction; IV Status: Completed infusion jr10 10:50 Not Given (pt denies pain, parameters not met): morphine 4 mg IVP once; RASS on ADMIN: jr10 Combtv4, Very Agttd3, Agttd2, Rstlss1, AlertClm0, Drwsy-1, Lt Sdtn-2, Mod Sdtn-3, Dp Sdtn-4, UnArsble-5 Disposition: 06/04 08:04 Co-signature as Attending Physician, Los Apodaca MD I agree with the assessment and kdr plan of care. Disposition: 06/03/20 11:37 Discharged to Home. Impression: Left Flank Pain. - Condition is Stable. - Discharge Instructions: Flank Pain, Adult. - Medication Reconciliation Form, Thank You Letter, Antibiotic Education, Prescription Opioid Use form. - Follow up: Shaheed Snowden MD; When: 2 - 3 days; Reason: Recheck today's complaints, Continuance of care, Re-evaluation by your physician. Signatures: Dispatcher [employer] Los Moreno MD MD kdr Mickail, Joel, PA PA [facility] Nallely Toney RN RN jr10 Corrections: (The following items were deleted from the chart) 06/03 12:15 11:37 06/03/2020 11:37 Discharged to Home. Impression: Left Flank Pain. Condition is jr10 Stable. Forms are Medication Reconciliation Form, Thank You Letter, Antibiotic Education, Prescription Opioid Use. Follow up: Shaheed Snowden; When: 2 - 3 days; Reason: Recheck today's complaints, Continuance of care, Re-evaluation by your physician. hi
[2020-06-03 12:21] VITALS: TEMP 97.9
[2020-06-03 12:24] VITALS: O2SAT 99
[2020-06-03 12:25] VITALS: BP 119/71
[2020-06-03 13:35] LABS: Urine Blood 3+ (NEG); Urine Glucose NEGATIVE (NEG); Urine Protein 1+ (NEG); Urine Specific Gravity 1.015 (1.005-1.030)
== END 2020-06-03 12:15 | disposition home or self-care (01) ==
LOC: ER 08:08
DX: R10.32 Left lower quadrant pain (principal)
CPT/HCPCS: 85025; 80048; 36415; 82565; 80076; 81003; 83690; 74177; Q9967; J7030; J2405; 96361; 96374; 99284